=== PATIENT | female | born 1985 | race African-American/Black ===

== ENCOUNTER 2018-11-17 16:31 | Emergency (ER) | payer BC ==
[~2018-11-17] VITALS: Ht 182.9 cm; Wt 86.4 kg
[~2018-11-17 16:31] MED LIST: ACYCLOVIR200 MG OR; ALBUTEROL90 MCG IN; AMOXIL500 MG OR; BACTRIM DS1 TAB PO; BIRTH CONTROL MED; CIPRO500 MG OR; CIPRO500 MG PO; CIPROFLOXACIN500 M1 OR; CIPROFLOXACN500 MG PO; CITALOPRAM10 MG OR; COLACE50 MG PO; DOCUSATE SOD100 M2 OR; FERRETTS325 MG OR; FLAGYL500 MG PO; FLUZONE SPLT1 M1 IM; GLYCOLAX3350 N1 OR; LORTAB 5/3255 MG PO; LORTAB 7.5 OR; MAALOX REG OR; MEDDOSEPAK PO; METFORMIN500 M1 PO; METFORMIN500 MG PO; MIRALAX3350 NF OR; MONISTAT 3 VA; MOTRIN400 MG OR; NAPROSYN500 MG OR; NO HOME MEDS; ONDANSETRON4 MG OR; PENICILLN VK500 MG PO; PHENERGAN12.5 MG/TA PO; PRENATA1 CHW OR; PRENATA7 PO; PYRIDIUM100 MG OR; PYRIDIUM200 MG OR; PYRIDIUM200 MG PO; QVAR80 MCG IN; TUBERSOL5 MG/0.1 M ID; TYLENOL500 MG OR; ULTRAM50 M1 PO; ULTRAM50 MG OR; UNKNOWN ANTIBIOTIC; ZOFRAN8 MG OR; [UNRECOGNIZED DRUG - OTHER] OR; [UNRECOGNIZED DRUG - OTHER] VA
[2018-11-17 16:45] VITALS: BP 104/65
== END 2018-11-17 16:55 | disposition left against medical advice (07) | DRG 951 ==
LOC: ED 16:31 → LWOBS 16:55
DX: Z91.19 Patient's noncompliance with other medical treatment and regimen (principal)

== ENCOUNTER 2020-05-20 09:14 | Emergency (ER) | payer BC ==
[~2020-05-20] VITALS: Ht 182.9 cm; Wt 90.0 kg
[2020-05-20 09:37] LABS: URINE BILIRUBIN - DIPSTICK NEGATIVE (NEGATIVE); URINE BLOOD DIPSTICK MODERATE (NEGATIVE); URINE GLUCOSE - DIPSTICK 100 mg/dL (NEGATIVE); URINE KETONE NEGATIVE (NEGATIVE); URINE PROTEIN - DIPSTICK TRACE mg/dL (NEG-TRACE); URINE SPECIFIC GRAVITY <=1.005
[2020-05-20 09:58] LABS: URINE COLOR ORANGE; URINE LEUK ESTERASE MODERATE (NEGATIVE); URINE NITRITE - DIPSTICK POSITIVE (Negative)
[2020-05-20 09:59] LABS: URINE BACTERIA FEW hpf; URINE SQUAMOUS EPITHELIAL CELL FEW EPI/hpf (0-FEW)
[2020-05-20] MEDS ORDERED: KEFLEX500 M1 PO (10:10)
[2020-05-20] MEDS ORDERED: PYRIDIUM200 MG PO (10:10)
[2020-05-20 10:35] VITALS: BP 105/67
== END 2020-05-20 10:35 | disposition home or self-care (01) | DRG 690 ==
LOC: ED 09:14
PROVIDERS: Emergency Medicine
DX: N39.0 Urinary tract infection, site not specified (principal)

== ENCOUNTER 2021-05-02 19:44 | Emergency (ER) | payer BC ==
[~2021-05-02] VITALS: Ht 180.3 cm; Wt 95.0 kg
[~2021-05-02 19:44] MED LIST changes: +KEFLEX500 M1 PO
[2021-05-02 21:14] LABS: HEMATOCRIT 31.2 % (37.0-47.0); HEMOGLOBIN 10.4 g/dl (12.0-16.0); IMMATURE GRANULOCYTES 0.2 % (0.0-5.0); MEAN CORPUSCULAR HGB 29.3 pG CALC (26.0-32.0); MEAN CORPUSCULAR HGB CONC 33.3 g/dL CAL (32.0-36.0); NEUT# 7.05 thou/uL (2.00-7.15); RED BLOOD COUNT 3.55 mill/uL (4.20-5.60); RED CELL DISTRI WIDTH 11.9 % (11.5-15.5)
[2021-05-02 21:32] LABS: MEAN CELL VOLUME 87.9 fL CALC (80.0-100.0)
[2021-05-02 21:54] LABS: ALBUMIN 3.6 g/dL (3.2-5.0); ALKALINE PHOSPHATASE 33 u/l (38-126); ANION GAP 11 (6-22 (CALC)); BUN 8 mg/dL (7-17); BUN/CREATININE RATIO 15 (12-20 (CALC)); CARBON DIOXIDE 28 mmol/l (22-30); CHLORIDE 101 mmol/l (95-108); CREATININE 0.5 mg/dL (0.5-1.0); GFR > 60 ML/MIN (>=60 (CALC)); GFR FOR AFR.AMER. > 60 ML/MIN (>=60 (CALC)); POTASSIUM 4.1 mmol/l (3.5-5.1); SGOT/AST 16 u/l (14-36); SODIUM 135 mmol/l (137-146)
[2021-05-02 21:56] LABS: BILIRUBIN, TOTAL 0.2 mg/dL (0.0-1.4)
[2021-05-02 22:13] LABS: AMYLASE 72 u/l (30-110); LIPASE 90 u/l (23-300)
[2021-05-02] MEDS ORDERED: PEPCID20 MG PO (22:24)
[2021-05-02 22:37] VITALS: BP 125/60
== END 2021-05-02 22:37 | disposition home or self-care (01) | DRG 833 ==
LOC: ED 19:44
PROVIDERS: Family Medicine
DX: O99.611 Diseases of the digestive system complicating pregnancy, first trimester (principal); K21.9 Gastro-esophageal reflux disease without esophagitis; Z3A.00 Weeks of gestation of pregnancy not specified

== ENCOUNTER 2021-09-26 07:38 | Emergency (ER) | payer OTHER ==
[~2021-09-26] VITALS: Ht 180.3 cm; Wt 110.0 kg
[~2021-09-26 07:38] MED LIST changes: +PEPCID20 MG PO
[2021-09-26 08:13] LABS: URINE BILIRUBIN - DIPSTICK NEGATIVE (NEGATIVE); URINE COLOR YELLOW; URINE GLUCOSE - DIPSTICK NEGATIVE (NEGATIVE); URINE KETONE TRACE mg/dL (NEGATIVE); URINE LEUK ESTERASE NEGATIVE (NEGATIVE); URINE SPECIFIC GRAVITY >=1.030; URINE UROBILINOGEN - DIPSTICK 0.2 E.U./dL (0.2)
[2021-09-26 08:14] LABS: URINE BLOOD DIPSTICK TRACE (NEGATIVE); URINE NITRITE - DIPSTICK NEGATIVE (Negative); URINE PROTEIN - DIPSTICK Trace mg/dL (NEG-TRACE)
[2021-09-26 08:26] LABS: HEMATOCRIT 29.9 % (37.0-47.0); HEMOGLOBIN 9.5 g/dl (12.0-16.0); MEAN CELL VOLUME 90.9 fL CALC (80.0-100.0); MEAN CORPUSCULAR HGB 28.9 pG CALC (26.0-32.0); MEAN CORPUSCULAR HGB CONC 31.8 g/dL CAL (32.0-36.0); NEUT# 7.49 thou/uL (2.00-7.15); RED BLOOD COUNT 3.29 mill/uL (4.20-5.60); RED CELL DISTRI WIDTH 13.5 % (11.5-15.5)
[2021-09-26 08:38] LABS: ALBUMIN 3.2 g/dL (3.2-5.0); BUN 8 mg/dL (7-17); BUN/CREATININE RATIO 16 (12-20 (CALC)); CHLORIDE 106 mmol/l (95-108); CREATININE 0.5 mg/dL (0.5-1.0); GFR > 60 ML/MIN (>=60 (CALC)); GFR FOR AFR.AMER. > 60 ML/MIN (>=60 (CALC)); POTASSIUM 3.9 mmol/l (3.5-5.1); SGOT/AST 20 u/l (14-36); SODIUM 134 mmol/l (137-146); TOTAL PROTEIN 6.7 g/dL (6.3-8.2)
[2021-09-26 08:45] LABS: ALKALINE PHOSPHATASE 61 u/l (38-126); ANION GAP 10 (6-22 (CALC)); BILIRUBIN, TOTAL 0.3 mg/dL (0.0-1.4); CARBON DIOXIDE 22 mmol/l (22-30)
[2021-09-26 08:54] LABS: BETA-HCG, QUANT(RESULT NUMBER) 8195 mIU/mL
[2021-09-26 09:35] VITALS: BP 112/51
== END 2021-09-26 09:35 | disposition home or self-care (01) ==
LOC: ED 07:38
PROVIDERS: Family Medicine
DX: O26.893 Other specified pregnancy related conditions, third trimester (principal); R42 Dizziness and giddiness; Z3A.29 29 weeks gestation of pregnancy; Z86.16 Personal history of COVID-19; Z20.822 Contact with and (suspected) exposure to COVID-19

== ENCOUNTER 2022-08-20 21:33 | Emergency (ER) | payer OTHER ==
[~2022-08-20] VITALS: Ht 180.3 cm; Wt 116.0 kg
[2022-08-20 23:52] VITALS: BP 142/70
== END 2022-08-20 23:42 | disposition home or self-care (01) ==
LOC: ED 21:33
DX: L03.116 Cellulitis of left lower limb (principal); Z86.16 Personal history of COVID-19

== ENCOUNTER 2023-07-17 10:48 | Emergency (ER) | payer SELFPAY ==
[~2023-07-17] VITALS: Ht 180.3 cm; Wt 104.0 kg
[2023-07-17 11:15] VITALS: BP 114/68
[2023-07-17 12:16] VITALS: BP 121/75
[2023-07-17 12:18] LABS: URINE BILIRUBIN - DIPSTICK Negative (NEGATIVE); URINE BLOOD DIPSTICK Small (NEGATIVE); URINE GLUCOSE - DIPSTICK Negative (NEGATIVE); URINE KETONE Negative (NEGATIVE); URINE LEUK ESTERASE Trace (NEGATIVE); URINE NITRITE - DIPSTICK Negative (Negative); URINE PH 6.5 (4.5-8.0); URINE PROTEIN - DIPSTICK Negative (NEG-TRACE); URINE UROBILINOGEN - DIPSTICK 0.2 E.U./dL (0.2)
[2023-07-17 12:19] LABS: URINE COLOR Yellow; URINE EPITHELIAL CELLS RARE EPI/hpf (0-FEW); URINE RBC 0-2 RBC/hpf (0-5); URINE WBC 0-2 WBC/hpf (0-5)
[2023-07-17 12:20] LABS: BASO% 0.4 % (0-3); EOS% 1.2 % (0-8); HEMATOCRIT 35.3 % (37.0-47.0); HEMOGLOBIN 11.3 g/dl (12.0-16.0); IMMATURE GRANULOCYTES 0.1 % (0.0-5.0); LYMPH% 26.4 % (15-41); MEAN CELL VOLUME 85.3 fL CALC (80.0-100.0); MEAN CORPUSCULAR HGB 27.3 pG CALC (26.0-32.0); MONO% 5.7 % (2-13); NEUT# 5.11 thou/uL (2.00-7.15); NEUT% 66.2 % (42-76); RED BLOOD COUNT 4.14 mill/uL (4.20-5.60); RED CELL DISTRI WIDTH 13.4 % (11.5-15.5)
[2023-07-17 12:29] LABS: ALBUMIN 4.3 g/dL (3.2-5.0); ALKALINE PHOSPHATASE 74 u/l (38-126); ANION GAP 11 (6-22 (CALC)); BILIRUBIN, TOTAL 0.4 mg/dL (0.02-1.3); BUN 6 mg/dL (7-17); BUN/CREATININE RATIO 9 (12-20 (CALC)); CARBON DIOXIDE 28 mmol/l (22-30); CHLORIDE 105 mmol/l (95-108); CREATININE 0.6 mg/dL (0.5-1.0); GFR FOR AFR.AMER. > 60 ML/MIN (>=60 (CALC)); GFR OTHER RACES > 60 ML/MIN (>=60 (CALC)); LIPASE 58 u/l (23-300); SGOT/AST 25 u/l (14-36); SODIUM 140 mmol/l (137-146); TOTAL PROTEIN 8.2 g/dL (6.3-8.2)
[2023-07-17 12:31] VITALS: BP 119/64
[2023-07-17] MEDS ORDERED: OMEPRAZOLE DR40 MG PO (14:01)
[2023-07-17 14:05] VITALS: BP 119/64
== END 2023-07-17 14:06 | disposition home or self-care (01) | DRG 392 ==
LOC: ED 10:48
PROVIDERS: Family Medicine
DX: R10.11 Right upper quadrant pain (principal); Z86.16 Personal history of COVID-19
CPT/HCPCS: Q9967

== ENCOUNTER 2024-09-20 19:33 | Emergency (ER) | payer OTHER ==
[~2024-09-20] VITALS: Ht 180.3 cm; Wt 113.4 kg
[~2024-09-20 19:33] MED LIST changes: +AMOXICILLIN875 MG PO; +MOTRIN800 MG PO; +OMEPRAZOLE DR40 MG PO; +TAM75CAP PO
[2024-09-20 19:47] VITALS: BP 113/73
[2024-09-20] MEDS ORDERED: ALUM & MAG HYDROX-SIMETHICONE 30 ML PO ONE (19:50)
[2024-09-20] MEDS ORDERED: Pantoprazole Sodium 40 MG VIAL (Protonix) IV STA (19:50)
[2024-09-20] MEDS ORDERED: SODIUM CHLORIDE 0.9% 1,000 ML IV STA (19:50)
[2024-09-20] MEDS ORDERED: LIDOCAINE VISCOUS 2% 15 ML UDC PO ONE (19:55)
[2024-09-20 20:01] VITALS: BP 138/77
[2024-09-20 20:20] VITALS: BP 114/68
[2024-09-20 20:23] LABS: BASO% 0.3 % (0-3); EOS% 1.6 % (0-8); HEMATOCRIT 34.6 % (37.0-47.0); HEMOGLOBIN 10.8 g/dl (12.0-16.0); IMMATURE GRANULOCYTES 0.1 % (0.0-5.0); LYMPH% 31.9 % (15-41); MEAN CELL VOLUME 87.4 fL CALC (80.0-100.0); MEAN CORPUSCULAR HGB 27.3 pG CALC (26.0-32.0); MEAN CORPUSCULAR HGB CONC 31.2 g/dL CAL (32.0-36.0); MONO% 6.4 % (2-13); NEUT# 5.68 thou/uL (2.00-7.15); NEUT% 59.7 % (42-76); RED BLOOD COUNT 3.96 mill/uL (4.20-5.60); RED CELL DISTRI WIDTH 13.9 % (11.5-15.5)
[2024-09-20 20:24] LABS: URINE BILIRUBIN - DIPSTICK Negative (NEGATIVE); URINE BLOOD DIPSTICK Small (NEGATIVE); URINE GLUCOSE - DIPSTICK Negative (NEGATIVE); URINE KETONE Negative (NEGATIVE); URINE LEUK ESTERASE Negative (NEGATIVE); URINE NITRITE - DIPSTICK Negative (Negative); URINE PROTEIN - DIPSTICK Negative (NEG-TRACE); URINE UROBILINOGEN - DIPSTICK 0.2 E.U./dL (0.2)
[2024-09-20 20:25] LABS: URINE COLOR Yellow; URINE SQUAMOUS EPITHELIAL CELL FEW EPI/hpf (0-FEW); URINE WBC 0-2 WBC/hpf (0-5)
[2024-09-20 20:36] LABS: ALBUMIN 4.1 g/dL (3.2-5.0); BILIRUBIN, TOTAL 0.8 mg/dL (0.02-1.3); CREATININE 0.8 mg/dL (0.5-1.0)
[2024-09-20] MEDS ORDERED: PANTOPRAZOLE SODIUM Sesquihydr 40 MG/TAB PO ONE (21:05)
[2024-09-20] MEDS ORDERED: OMEPRAZOLE20 MG PO (21:06)
[2024-09-20 21:27] VITALS: BP 114/68
== END 2024-09-20 21:27 | disposition home or self-care (01) | DRG 392 ==
LOC: ED 19:33
PROVIDERS: Family Medicine
DX: K29.70 Gastritis, unspecified, without bleeding (principal); K21.9 Gastro-esophageal reflux disease without esophagitis; Z72.0 Tobacco use
CPT/HCPCS: J2470

== ENCOUNTER 2025-01-21 05:07 | Emergency (ER) | payer OTHER ==
[~2025-01-21] VITALS: Ht 180.3 cm; Wt 108.0 kg
[~2025-01-21 05:07] MED LIST changes: +OMEPRAZOLE20 MG PO
[2025-01-21 05:13] VITALS: BP 126/87
[2025-01-21] MEDS ORDERED: KETOROLAC TROMETHAMINE 30 MG/ML SDV IM ONE (05:20)
[2025-01-21 06:01] VITALS: BP 114/71
[2025-01-21 06:44] VITALS: BP 114/71
== END 2025-01-21 06:52 | disposition home or self-care (01) ==
LOC: ED 05:07
DX: R51.9 Headache, unspecified (principal); Z72.0 Tobacco use; Z86.16 Personal history of COVID-19